=== PATIENT | female | born 1990 | race American Indian/Alaskan Native ===

== ENCOUNTER 2016-10-29 00:32 | Emergency (ER) | payer OTHER ==
[2016-10-29] MEDS ORDERED: KETOROLAC 30 MG/ML 1 ML VIAL IVP STA (01:21)
[2016-10-29] MEDS ORDERED: SODIUM CHLORIDE 0.9% 1,000 ML IV STA (01:21)
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
[2016-10-29] MEDS ORDERED: ONDANSETRON 4 MG/2 ML VIAL IVP STA (01:53)
--- NOTE | 2016-10-29 02:20 | XR ---
EXAM: XR Kub. CLINICAL HISTORY: Reason: abdominal pain TECHNIQUE: Upright views of abdomen COMPARISON: No relevant prior studies available. FINDINGS: Nonobstructive bowel gas pattern. No subdiaphragmatic free air. Possible increased fecal burden. Correlate for constipation. Cholecystectomy clips. IMPRESSION: Possible increased fecal burden. Correlate for constipation.
[2016-10-29 02:23] LABS: Basophils % (A) 1 %; CH 28.7; CHCM 33.6; Eosinophils # (A) 0.1 k/uL (0-0.7); Eosinophils % (A) 2 %; HCT 40.9 % (34.0-46.0); HDW 2.38; HGB 13.7 gm/dL (11.4-16.0); Luc # (Auto) 0.25; Luc % (Auto) 4; Lymphocytes # (A) 3.5 k/uL (1.0-4.8); Lymphocytes % (A) 49 %; MCH 28.6 pg (25.0-35.0); MCHC 33.4 g/dL (31.0-37.0); MCV 85.6 fL (80.0-100.0); Mean Platelet Volume 7.8; Monocytes # (A) 0.4 k/uL (0-1.0); Monocytes % (A) 5 %; Neutrophils # (A) 2.8 k/uL (1.3-7.7); Neutrophils % (A) 40 %; RBC 4.78 m/uL (3.80-5.40); RDW 12.8 % (11.5-15.5); WBC (Perox) 7.21
[2016-10-29 02:33] LABS: Appearance,Urine Cloudy (Clear); Bacteria,Urine Rare /hpf; Bilirubin,Urine Negative (Negative); Glucose,Urine (UA) Negative (Negative); Ketones,Urine Negative (Negative); Leukocyte Esterase,Urine Large (Negative); Mucus,Urine Rare /hpf; Nitrite,Urine Negative (Negative); PH, Urine 5.5 (5.0-8.0); Particle Count 13181; Protein,Urine Negative (Negative); RBC,Urine 4 /hpf (0-5); Specific Gravity,Urine 1.019 (1.001-1.035); Squamous Epithelial Cell,Urine 12 /hpf (0-4); UA Billing (MACRO vs. MICRO) MICRO; Urobilinogen,Urine <2.0 mg/dL (<2.0); WBC,Urine 26 /hpf (0-5)
[2016-10-29 02:38] LABS: ALT 30 U/L (9-52); AST 26 U/L (14-36); Alkaline Phosphatase 96 U/L (38-126); Amylase 37 U/L (30-110); Anion Gap 11 mmol/L; Blood Urea Nitrogen 8 mg/dL (7-17); Calcium 9.1 mg/dL (8.4-10.2); Carbon Dioxide 24 mmol/L (22-30); Chloride 108 mmol/L (98-107); Glucose 87 mg/dL (74-99); Non-African American GFR(MDRD) >60 (>60 ml/min/1.73 sqM); Potassium 4.2 mmol/L (3.5-5.1); Sodium 143 mmol/L (137-145); Total Bilirubin 0.6 mg/dL (0.2-1.3); Total Protein 6.5 g/dL (6.3-8.2)
[2016-10-29 03:21] VITALS: BP 134/68; PULSE 76; RESP 18; TEMP 98.8
== END 2016-10-29 03:20 | disposition home or self-care (01) ==
LOC: EC 00:32
DX: N39.0 Urinary tract infection, site not specified (principal); R10.32 Left lower quadrant pain; R11.0 Nausea; Z88.2 Allergy status to sulfonamides; Z91.048 Other nonmedicinal substance allergy status; Z90.49 Acquired absence of other specified parts of digestive tract
CPT/HCPCS: 36415; 80053; 82150; 83690; 85025; 81001; 81025; 87086; 74000; 99284; 96374; 96375; 96361; J2405; J1885; 87077; 87186

== ENCOUNTER 2016-12-27 20:55 | Emergency (ER) | payer OTHER ==
[2016-12-27 21:05] VITALS: BP 114/83; PULSE 98; RESP 18; TEMP 98
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
--- NOTE | 2016-12-27 21:42 | XR ---
EXAMINATION TYPE: XR ankle complete LT DATE OF EXAM: 12/27/2016 9:34 PM COMPARISON: NONE HISTORY: Pain TECHNIQUE: 3 views FINDINGS: I see no fracture nor dislocation. Ankle mortise is anatomic. Joint spaces are normal. IMPRESSION: Negative left ankle exam.
--- NOTE | 2016-12-27 21:43 | XR ---
EXAMINATION TYPE: XR foot complete LT DATE OF EXAM: 12/27/2016 9:34 PM COMPARISON: NONE HISTORY: Pain TECHNIQUE: 3 views FINDINGS: I see no fracture nor dislocation. Metatarsals are intact. Joint spaces are normal. IMPRESSION: Negative left foot exam.
== END 2016-12-27 21:58 | disposition home or self-care (01) ==
LOC: EC 20:55
DX: S93.402A Sprain of unspecified ligament of left ankle, initial encounter (principal); Z88.2 Allergy status to sulfonamides; Z91.09 Other allergy status, other than to drugs and biological substances; W22.8XXA Striking against or struck by other objects, initial encounter; Y93.89 Activity, other specified
CPT/HCPCS: 99283

== ENCOUNTER 2017-03-05 17:41 | Emergency (ER) | payer OTHER ==
[2017-03-05] MEDS ORDERED: SODIUM CHLORIDE 0.9% 1,000 ML IV STA (18:20)
[2017-03-05] MEDS ORDERED: ONDANSETRON 4 MG/2 ML VIAL IVP STA (18:20)
[2017-03-05] MEDS ORDERED: MORPHINE SULFATE 4 MG/ML SYRINGE IV STA (18:20)
[2017-03-05] MEDS ORDERED: SODIUM CHLORIDE 0.9% 500 ML IV STA (18:20)
[2017-03-05 19:14] LABS: Appearance,Urine Clear (Clear); Bacteria,Urine Rare /hpf; Bilirubin,Urine Negative (Negative); Calcium Oxalate Crystals,Urine Occasional /hpf; Glucose,Urine (UA) Negative (Negative); Ketones,Urine Negative (Negative); Leukocyte Esterase,Urine Small (Negative); Mucus,Urine Occasional /hpf; Nitrite,Urine Negative (Negative); Particle Count 5797; Protein,Urine Negative (Negative); RBC,Urine 1 /hpf (0-5); Specific Gravity,Urine 1.021 (1.001-1.035); Squamous Epithelial Cell,Urine 4 /hpf (0-4); UA Billing (MACRO vs. MICRO) MICRO; WBC,Urine 10 /hpf (0-5)
--- NOTE | 2017-03-05 19:14 | XR ---
EXAMINATION TYPE: XR KUB DATE OF EXAM: 03/05/2017 COMPARISON: 10/29/2016 HISTORY: Abdominal pain TECHNIQUE: 2 views FINDINGS: There is no sign of intestinal obstruction or pneumoperitoneum. Fecal pattern is normal. Th ere are clips from cholecystectomy. Lung bases are clear. There is no sign of a mass. There are no pa thologic calcifications over the kidneys. IMPRESSION: Nonacute abdomen. No change.
[2017-03-05 19:16] LABS: Basophils % (A) 1 %; CH 29.3; CHCM 34.2; Eosinophils # (A) 0.1 k/uL (0-0.7); Eosinophils % (A) 2 %; HCT 39.4 % (34.0-46.0); HGB 13.7 gm/dL (11.4-16.0); Luc # (Auto) 0.11; Luc % (Auto) 2; Lymphocytes # (A) 3.1 k/uL (1.0-4.8); Lymphocytes % (A) 50 %; MCHC 34.9 g/dL (31.0-37.0); Mean Platelet Volume 6.9; Monocytes # (A) 0.2 k/uL (0-1.0); Monocytes % (A) 3 %; Neutrophils # (A) 2.7 k/uL (1.3-7.7); Neutrophils % (A) 43 %; RBC 4.58 m/uL (3.80-5.40); RDW 13.4 % (11.5-15.5); WBC 6.3 k/uL (3.8-10.6); WBC (Perox) 6.27
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
[2017-03-05 19:21] LABS: ALT 49 U/L (9-52); AST 34 U/L (14-36); Alkaline Phosphatase 120 U/L (38-126); Amylase 61 U/L (30-110); Anion Gap 12 mmol/L; Blood Urea Nitrogen 13 mg/dL (7-17); C Reactive Protein <5.0 mg/L (<10.0); Calcium 9.4 mg/dL (8.4-10.2); Carbon Dioxide 24 mmol/L (22-30); Chloride 107 mmol/L (98-107); Glucose 85 mg/dL (74-99); Non-African American GFR(MDRD) >60 (>60 ml/min/1.73 sqM); Potassium 4.1 mmol/L (3.5-5.1); Sodium 143 mmol/L (137-145); Total Bilirubin 0.7 mg/dL (0.2-1.3); Total Protein 7.6 g/dL (6.3-8.2)
--- NOTE | 2017-03-05 19:27 | US ---
EXAMINATION TYPE: US transvaginal DATE OF EXAM: 03/05/2017 COMPARISON: Prior in PACS CLINICAL HISTORY: LLQ Pain. TECHNIQUE: Transvaginal (TV) Date of LMP: 2 weeks ago EXAM MEASUREMENTS: Uterus: 8.4 x 4.1 x 5.0 cm Endometrial Stripe: 0.7 cm Right Ovary: 3.9 x 2.3 x 2.0 cm Left Ovary: 3.4 x 1.9 x 1.7 cm 1. Uterus: Anteverted wnl 2. Endometrium: wnl 3. Right Ovary: Follicles visualized, wnl 4. Left Ovary: Follicles visualized, wnl Spectral, color and waveform doppler imaging shows good arterial and venous flow within the ovaries ; there is no evidence for ovarian torsion. 5. Bilateral Adnexa: wnl 6. Posterior cul-de-sac: wnl IMPRESSION: No evidence of ovarian torsion. Multiple follicular-type ovarian cysts. Normal uterus and endometrium.
[2017-03-05 19:45] LABS: Polychromasia Present
[2017-03-05 20:35] VITALS: BP 124/72; PULSE 82; RESP 18; TEMP 97.3
== END 2017-03-05 20:34 | disposition home or self-care (01) ==
LOC: EC 17:41
DX: R10.32 Left lower quadrant pain (principal); R11.0 Nausea; F32.9 Major depressive disorder, single episode, unspecified; Z79.899 Other long term (current) drug therapy; Z88.2 Allergy status to sulfonamides; Z91.09 Other allergy status, other than to drugs and biological substances; Z90.49 Acquired absence of other specified parts of digestive tract; Z90.710 Acquired absence of both cervix and uterus
CPT/HCPCS: 96361 ×3; 96374 ×2; 96375 ×2; 99284 ×2; 36415; 80053; 82150; 83690; 85025; 86140; 81001; 81025; 74000; 93975; 76830; J2270; J2405

== ENCOUNTER 2017-08-20 16:17 | Emergency (ER) | payer OTHER ==
[2017-08-20 16:22] VITALS: TEMP 99
--- NOTE | 2017-08-20 17:41 | XR ---
EXAMINATION TYPE: XR chest 2V DATE OF EXAM: 08/20/2017 COMPARISON: 11/01/2015 HISTORY: Cough and congestion TECHNIQUE: Frontal and lateral views of the chest are obtained. FINDINGS: Heart and mediastinum are normal. There is a small infiltrate in the anterior segment of t he right upper lobe that appears new compared to old exam. There is no pleural effusion. Bony thorax is intact. IMPRESSION: New mild right upper lobe pneumonia compared to old exam.
[2017-08-20 17:45] VITALS: BP 115/65; PULSE 82; RESP 16
[2017-08-20 17:54] LABS: Basophils # (A) 0.1 k/uL (0-0.2); Basophils % (A) 1 %; Eosinophils # (A) 0.2 k/uL (0-0.7); Eosinophils % (A) 3 %; HCT 41.3 % (34.0-46.0); HGB 13.7 gm/dL (11.4-16.0); Lymphocytes # (A) 2.5 k/uL (1.0-4.8); Lymphocytes % (A) 31 %; MCHC 33.2 g/dL (31.0-37.0); MCV 90.3 fL (80.0-100.0); Mean Platelet Volume 7.1; Monocytes # (A) 0.2 k/uL (0-1.0); Monocytes % (A) 3 %; Neutrophils # (A) 4.9 k/uL (1.3-7.7); Neutrophils % (A) 62 %; Platelet Count 227 k/uL (150-450); RBC 4.58 m/uL (3.80-5.40); RDW 13.4 % (11.5-15.5); WBC 7.9 k/uL (3.8-10.6)
[2017-08-20 18:04] LABS: Anion Gap 12 mmol/L; Blood Urea Nitrogen 13 mg/dL (7-17); Calcium 9.5 mg/dL (8.4-10.2); Carbon Dioxide 24 mmol/L (22-30); Chloride 105 mmol/L (98-107); Glucose 91 mg/dL (74-99); Potassium 4.2 mmol/L (3.5-5.1); Sodium 141 mmol/L (137-145)
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
== END 2017-08-20 18:36 | disposition home or self-care (01) ==
LOC: EC 16:17
DX: J18.9 Pneumonia, unspecified organism (principal); J45.909 Unspecified asthma, uncomplicated; Z91.048 Other nonmedicinal substance allergy status; Z88.2 Allergy status to sulfonamides
CPT/HCPCS: 36415; 71046; 80048; 85025; 85379; 87502; 99283

== ENCOUNTER 2018-02-02 13:32 | Emergency (ER) | payer OTHER ==
[2018-02-02 13:39] VITALS: BP 128/85; PULSE 100; RESP 18; TEMP 98.7
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
== END 2018-02-02 14:01 | disposition home or self-care (01) ==
LOC: EC 13:32
DX: K02.9 Dental caries, unspecified (principal); F17.200 Nicotine dependence, unspecified, uncomplicated; Z88.2 Allergy status to sulfonamides; Z91.048 Other nonmedicinal substance allergy status
CPT/HCPCS: 99283

== ENCOUNTER 2020-06-08 12:12 | Emergency (ER) | payer BC, OTHER ==
[2020-06-08 12:54] VITALS: BP 121/84; PULSE 91; RESP 16; TEMP 99.2
[2020-06-08] MEDS ORDERED: KETOROLAC 15 MG/ML 1 ML VIAL IM STA (13:49)
--- NOTE | 2020-06-08 14:04 | XR ---
EXAM TYPE: LUMBAR SPINE X RAY SERIES COMPARISON: NONE HISTORY: Pain TECHNIQUE: 4 views are submitted. FINDINGS: Alignment is anatomic. The pedicles are intact. The transverse processes are intact. There is no s pondylolisthesis. No compression deformities. Calcifications in the left pelvis likely vascular. Fabian gical clips in the upper quadrant noted. IMPRESSION: 1. No acute process.
[2020-06-08] MEDS ORDERED: Acetaminophen-Codeine 300-30mg TAB PO STA (14:40)
[2020-06-08] MEDS ORDERED: ACET/COD 300 MG/30 MG STARTER PACK 6 TAB BTL PO STA (14:40)
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
== END 2020-06-08 15:10 | disposition home or self-care (01) ==
LOC: EC 12:12
DX: M54.5 Low back pain (principal); F17.200 Nicotine dependence, unspecified, uncomplicated; Z88.2 Allergy status to sulfonamides; Z91.048 Other nonmedicinal substance allergy status; W01.0XXA Fall on same level from slipping, tripping and stumbling without subsequent striking against object, initial encounter; Y93.E1 Activity, personal bathing and showering; Y92.002 Bathroom of unspecified non-institutional (private) residence as the place of occurrence of the external cause
CPT/HCPCS: 72100; 99284; 96372; J1885

== ENCOUNTER 2022-06-25 17:00 | Emergency (ER) | payer OTHER ==
[2022-06-25 17:04] VITALS: TEMP 98.9
[2022-06-25] MEDS ORDERED: KETOROLAC 15 MG/ML 1 ML VIAL IVP STA (18:44)
[2022-06-25] MEDS ORDERED: SODIUM CHLORIDE 0.9% 1,000 ML IV STA (18:44)
[2022-06-25 19:09] LABS: Basophils % (A) 0 %; Eosinophils # (A) 0.1 k/uL (0-0.7); Eosinophils % (A) 1 %; HCT 43.8 % (34.0-46.0); Lymphocytes % (A) 24 %; MCHC 34.2 g/dL (31.0-37.0); MCV 90.7 fL (80.0-100.0); Mean Platelet Volume 7.4; Monocytes # (A) 0.3 k/uL (0-1.0); Monocytes % (A) 3 %; Neutrophils # (A) 6.1 k/uL (1.3-7.7); Neutrophils % (A) 71 %; Platelet Count 259 k/uL (150-450); RBC 4.83 m/uL (3.80-5.40); RDW 12.6 % (11.5-15.5); WBC 8.7 k/uL (3.8-10.6)
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
[2022-06-25 19:35] LABS: INR 0.9 (<1.2); Partial Thromboplastin Time 27.7 sec (22.0-30.0); Prothrombin Time 10.4 sec (9.0-12.0)
[2022-06-25 19:36] LABS: ALT 33 U/L (4-34); AST 31 U/L (14-36); African American GFR (CKD) >90 (>60 ml/min/1.73 sqM); Alkaline Phosphatase 114 U/L (38-126); Amylase 66 U/L (30-110); Anion Gap 10 mmol/L; Blood Urea Nitrogen 9 mg/dL (7-17); Calcium 9.2 mg/dL (8.4-10.2); Carbon Dioxide 24 mmol/L (22-30); Chloride 106 mmol/L (98-107); Glucose 93 mg/dL (74-99); Lipase 77 U/L (23-300); Non-African American GFR(CKD) >90 (>60 ml/min/1.73 sqM); Potassium 4.2 mmol/L (3.5-5.1); Sodium 140 mmol/L (137-145); Total Bilirubin 0.8 mg/dL (0.2-1.3)
[2022-06-25 19:51] LABS: Appearance,Urine Cloudy (Clear); Bacteria,Urine Rare /hpf; Bilirubin,Urine Negative (Negative); Blood,Urine Trace (Negative); Color,Urine Yellow; Glucose,Urine (UA) Negative (Negative); Hyaline Casts,Urine 1 /lpf (0-2); Ketones,Urine Trace (Negative); Leukocyte Esterase,Urine Large (Negative); Mucus,Urine Rare /hpf; Nitrite,Urine Negative (Negative); Protein,Urine Negative (Negative); RBC,Urine 13 /hpf (0-5); Specific Gravity,Urine 1.019 (1.001-1.035); Squamous Epithelial Cell,Urine 18 /hpf (0-4); Urobilinogen,Urine <2.0 mg/dL (<2.0); WBC,Urine 13 /hpf (0-5)
--- NOTE | 2022-06-25 20:57 | CT ---
EXAMINATION TYPE: CT abdomen pelvis w con DATE OF EXAM: 06/25/2022 COMPARISON: None HISTORY: Fever. LLQ abdominal tenderness. CT DLP: 2099.6 mGycm Automated exposure control for dose reduction was used. CONTRAST: Performed with IV Contrast, patient injected with 100cc mL of Isovue 300. Images obtained from the diaphragm to the floor the pelvis with the IV contrast. The lung bases are clear. No pleural effusion. Heart size is normal. No pericardial effusion. The liver spleen appear intact. There is no pancreatic mass. Stomach is intact. There are clips from cholecystectomy. The bile ducts are not dilated. There is no adrenal mass. Kidneys show satisfactory contrast opacification. No hydronephrosis. Delaye d images show normal renal excretion. Ureters are not dilated. Appendix is posterior and appears norm al. Bladder distends smoothly. There is small amount of fluid in the pelvis. No inguinal hernia. No e vidence of a pelvic mass. Uterus is retroverted. The lumbar vertebrae have normal alignment. Disc spaces are normal. Posterior elements are intact. No compression fracture. The bony pelvis is intact. The hip joints appear normal. Sacroiliac joints teodoro ear normal. There is no mesenteric edema. No ascites or free air. No sign of a bowel obstruction. IMPRESSION: There is small amount of low-density fluid in the pelvis that could be physiologic. Otherwise negativ e CT scan of the abdomen and pelvis. No evidence of inflammatory bowel disease.
[2022-06-25 21:09] VITALS: RESP 18
--- NOTE | 2022-06-25 21:41 | US ---
EXAMINATION TYPE: US transvaginal DATE OF EXAM: 06/25/2022 COMPARISON: CT: Today CLINICAL HISTORY: L sided pelvic pain. L sided pelvic pain x 1 week. . Hx of d&c and tubes tied TECHNIQUE: . Transvaginal sonographic images of the pelvis were acquired. Date of LMP: Unknown EXAM MEASUREMENTS: Uterus: 8.5 x 6.0 x 4.8 cm Endometrial Stripe: 1.2 cm Right Ovary: 3.4 x 2.9 x 2.2 cm Left Ovary: 3.7 x 3.2 x 2.5 cm 1. Uterus: Retroverted wnl 2. Endometrium: wnl 3. Right Ovary: wnl 4. Left Ovary: wnl Spectral, color and waveform doppler imaging shows good arterial and venous flow within the ovaries ; there is no evidence for ovarian torsion. 5. Bilateral Adnexa: Small amount of fluid adjacent to left ovary 6. Posterior cul-de-sac: Small amount of fluid IMPRESSION: There is small amount of free fluid in the cul-de-sac that could be physiologic. No evidence of ovari an torsion. Normal uterus.
[2022-06-25] MEDS ORDERED: cefTRIAXone 250 MG VIAL IM STA (21:54)
[2022-06-25] MEDS ORDERED: DOXYCYCLINE 100 MG CAP PO STA (21:55)
[2022-06-25] MEDS ORDERED: metroNIDAZOLE 500 MG TAB PO STA (21:55)
[2022-06-25] MEDS ORDERED: NITROFURANTOIN MONOHYD/M-CRYST 100 MG CAP PO STA (21:56)
[2022-06-25 22:57] VITALS: BP 121/68; PULSE 91
[2022-06-26 13:14] LABS: C. trachomatis,PCR Negative (Neg,Equiv); Chlamydia trachomatis Source Urine; N. gonorrhoeae,PCR Negative (Neg,Equiv); Neisseria Source Urine
== END 2022-06-25 22:58 | disposition home or self-care (01) ==
LOC: EC 17:00
DX: N39.0 Urinary tract infection, site not specified (principal); J45.909 Unspecified asthma, uncomplicated; R18.8 Other ascites; F32.A Depression, unspecified; F17.290 Nicotine dependence, other tobacco product, uncomplicated; F12.90 Cannabis use, unspecified, uncomplicated; Z20.822 Contact with and (suspected) exposure to COVID-19; Z88.2 Allergy status to sulfonamides
CPT/HCPCS: 99284; 96374; 96361; 96372; 36415; 80053; 82150; 83605; 83690; 85025; 85610; 85730; 81001; 81025; 87491; 87591; 87086; 87502; 87635; 93975; 76830; 74177; J0696; J1885; Q9967

== ENCOUNTER 2023-09-14 11:16 | Emergency (ER) | payer OTHER ==
[2023-09-14 11:37] VITALS: BP 121/81; PULSE 98; RESP 16; TEMP 98.8
[2023-09-14 11:59] LABS: Basophils # (A) 0.1 k/uL (0-0.2); Basophils % (A) 1 %; Eosinophils # (A) 0.1 k/uL (0-0.7); Eosinophils % (A) 2 %; HCT 43.1 % (34.0-46.0); HGB 14.6 gm/dL (11.4-16.0); Lymphocytes # (A) 2.5 k/uL (1.0-4.8); Lymphocytes % (A) 27 %; MCH 30.6 pg (25.0-35.0); MCHC 33.8 g/dL (31.0-37.0); MCV 90.5 fL (80.0-100.0); Mean Platelet Volume 7.6; Monocytes # (A) 0.4 k/uL (0-1.0); Monocytes % (A) 4 %; Neutrophils # (A) 5.9 k/uL (1.3-7.7); Neutrophils % (A) 65 %; Platelet Count 246 k/uL (150-450); RBC 4.76 m/uL (3.80-5.40); RDW 12.8 % (11.5-15.5)
[2023-09-14 12:08] LABS: ALT 24 U/L (4-34); AST 27 U/L (14-36); African American GFR (CKD) >90 (>60 ml/min/1.73 sqM); Albumin 4.8 g/dL (3.5-5.0); Alkaline Phosphatase 98 U/L (38-126); Anion Gap 10 mmol/L; Blood Urea Nitrogen 11 mg/dL (7-17); Calcium 9.6 mg/dL (8.4-10.2); Carbon Dioxide 24 mmol/L (22-30); Chloride 107 mmol/L (98-107); Glucose 97 mg/dL (74-99); Lipase 63 U/L (23-300); Non-African American GFR(CKD) 86 (>60 ml/min/1.73 sqM); Sodium 141 mmol/L (137-145); Total Bilirubin 0.6 mg/dL (0.2-1.3); Total Protein 8.1 g/dL (6.3-8.2)
[2023-09-14] MEDS: SODIUM CHLORIDE 0.9% 2,000 ML IV STA (12:09)
[2023-09-14] MEDS: ONDANSETRON 4 MG/2 ML VIAL IVP STA (12:12)
[2023-09-14] MEDS: DICYCLOMINE 20 MG TAB PO STA (12:12)
[2023-09-14 12:40] LABS: Appearance,Urine Clear (Clear); Bacteria,Urine Rare /hpf; Bilirubin,Urine Negative (Negative); Blood,Urine Negative (Negative); Color,Urine Colorless; Glucose,Urine (UA) Negative (Negative); Ketones,Urine Negative (Negative); Leukocyte Esterase,Urine Small (Negative); Mucus,Urine Rare /hpf; Nitrite,Urine Negative (Negative); PH, Urine 6.5 (5.0-8.0); Protein,Urine Negative (Negative); RBC,Urine 1 /hpf (0-5); Squamous Epithelial Cell,Urine 4 /hpf (0-4); Urobilinogen,Urine <2.0 mg/dL (<2.0); WBC,Urine 1 /hpf (0-5)
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
== END 2023-09-14 13:47 | disposition home or self-care (01) ==
LOC: EC 11:16
DX: K52.9 Noninfective gastroenteritis and colitis, unspecified (principal); J45.909 Unspecified asthma, uncomplicated; F12.90 Cannabis use, unspecified, uncomplicated; F17.290 Nicotine dependence, other tobacco product, uncomplicated; Z86.59 Personal history of other mental and behavioral disorders; Z88.2 Allergy status to sulfonamides; Z88.8 Allergy status to other drugs, medicaments and biological substances
CPT/HCPCS: 36415; 80053; 83690; 85025; 81001; 99283; 96374; 96361; J2405

== ENCOUNTER 2023-09-24 10:39 | Emergency (ER) | payer OTHER ==
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
[2023-09-24 11:40] VITALS: TEMP 98.3
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
[2023-09-24] MEDS: HYDROcodone/APAP 5-325MG 1 EACH TAB PO STA (12:03)
[2023-09-24 12:13] VITALS: BP 111/63; PULSE 63; RESP 18
[2023-09-24] MEDS: ACET/COD 300 MG/30 MG STARTER PACK 6 TAB BTL PO STA (12:23)
== END 2023-09-24 12:30 | disposition home or self-care (01) ==
LOC: EC 10:39
DX: M54.9 Dorsalgia, unspecified (principal); J45.909 Unspecified asthma, uncomplicated; F17.290 Nicotine dependence, other tobacco product, uncomplicated; F12.90 Cannabis use, unspecified, uncomplicated; Z86.59 Personal history of other mental and behavioral disorders; Z88.2 Allergy status to sulfonamides; Z88.8 Allergy status to other drugs, medicaments and biological substances; V89.2XXA Person injured in unspecified motor-vehicle accident, traffic, initial encounter; Y92.410 Unspecified street and highway as the place of occurrence of the external cause
CPT/HCPCS: 72050; 72100; 72170; 99283

== ENCOUNTER 2023-09-26 14:50 | Emergency (ER) | payer OTHER ==
[2023-09-26 15:26] VITALS: RESP 18; TEMP 98.8
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
[2023-09-26] MEDS: diazePAM 5 MG TAB PO STA (17:12)
[2023-09-26] MEDS: KETOROLAC 15 MG/ML 1 ML VIAL IM STA (17:12)
[2023-09-26 17:51] VITALS: BP 112/72; PULSE 87
== END 2023-09-26 17:37 | disposition home or self-care (01) ==
LOC: EC 14:50
DX: S16.1XXA Strain of muscle, fascia and tendon at neck level, initial encounter (principal); J45.909 Unspecified asthma, uncomplicated; F17.290 Nicotine dependence, other tobacco product, uncomplicated; F12.90 Cannabis use, unspecified, uncomplicated; Z86.59 Personal history of other mental and behavioral disorders; Z88.2 Allergy status to sulfonamides; Z88.8 Allergy status to other drugs, medicaments and biological substances; V89.2XXA Person injured in unspecified motor-vehicle accident, traffic, initial encounter; Y92.411 Interstate highway as the place of occurrence of the external cause
CPT/HCPCS: 99283; 96372; J1885

== ENCOUNTER → 2023-11-25 | Outpatient (CLI) | payer OTHER ==
[2023-11-25 18:22] LABS: HCT 43.1 % (37.2-46.3); HGB 14.4 g/dL (12.0-15.0); MCH 30.3 pg (27.0-32.0); MCHC 33.4 g/dL (32.0-37.0); MCV 90.5 FL (80.0-97.0); Mean Platelet Volume 9.6 FL (9.5-12.2); NRBC Per 100 WBC 0 X 10*3/uL (0.00-0.01); Platelet Count 277 X 10*3/uL (140-440); RBC 4.76 X 10*6/uL (4.10-5.20); RDW 12.5 % (11.5-14.5); WBC 7.46 X 10*3/uL (4.50-10.00)
[2023-11-25 19:34] LABS: ALT 19 U/L (8-44); AST 23 U/L (13-35); Albumin 4.8 g/dL (3.8-4.9); Albumin/Globulin Ratio 1.78 Ratio (1.60-3.17); Alkaline Phosphatase 99 U/L (41-126); Blood Urea Nitrogen 10.8 mg/dL (9.0-27.0); Calcium 9.6 mg/dL (8.7-10.3); Carbon Dioxide 24.7 mmol/L (21.6-31.8); Chloride 104 mmol/L (96-109); Globulin 2.7 g/dL (1.6-3.3); Glucose 98 mg/dL (70-110); Sodium 141 mmol/L (135-145); Total Bilirubin 0.3 mg/dL (0.3-1.2); Total Protein 7.5 g/dL (6.2-8.2)
== END | disposition home or self-care (01) ==
LOC: LABWHC1 14:59
PROVIDERS: ATTEND Psychiatry & Neurology Psychiatry
DX: Z51.81 Encounter for therapeutic drug level monitoring (principal); Z79.899 Other long term (current) drug therapy
CPT/HCPCS: 36415; 80053; 84443; 85027

== ENCOUNTER → 2024-05-14 | Outpatient (CLI) | payer OTHER ==
--- NOTE | 2024-05-15 19:03 | MM ---
Reason for Exam: Screening (asymptomatic). Baseline mammogram. Patient History: Menarche at age 10. First Full-Term at age 16. Maternal grandmother had breast cancer. Maternal grandmother had ovarian cancer. Mother had breast cancer. Last menstrual period: 04/19/2024 Risk Values: Elly 5 year model risk: 0.5%. NCI Lifetime model risk: 18.3%. Prior Study Comparison: Patient's first Mammogram. No prior studies available for comparison. Tissue Density: There are scattered areas of fibroglandular density. Findings: Analyzed By CAD. There is some benign regional calcifications on the right. No suspicious microcalcification, significant masses, or other discrete abnormality is seen. Overall Assessment: Benign, BI-RAD 2 Management: Screening Mammogram of both breasts in 1 year. . Patient should continue monthly self-breast exams. A clinical breast exam by your physician is recommended on an annual basis. This exam should not preclude additional follow-up of suspicious palpable abnormalities. Note on Elly scores and lifetime risk: 1. A Elly score greater than 3% is considered moderate risk. If this is the case, consider specialist referral to assess eligibility for a risk reducing agent. 2. If overall lifetime risk for the development of breast cancer is 20% or higher, the patient may qualify for future screening with alternating mammogram and breast MRI. [facility], , 05/15/2024 7:01 PM. Electronically signed and approved by: Rochelle Jolley M.D. Radiologist
== END | disposition home or self-care (01) ==
LOC: RADMAMWWP 10:16
PROVIDERS: ATTEND Family Medicine
CPT/HCPCS: 77067